=== PATIENT | male | born 1930 | race Caucasian/White ===

== ENCOUNTER 2016-10-29 14:39 | Emergency (ER) | payer MEDICAID, MEDICARE ==
--- NOTE | 2016-10-29 15:05 | EDM.PDOC ---
ED HPI GI/ABDOMINAL - General Chief Complaint: Gastrointestinal Problem Stated Complaint: PULLED OUT G-TUBE Time Seen by Provider: 10/29/16 14:45 Source of Information: Reports: Family History Limitations: Reports: No limitations - History of Present Illness INITIAL COMMENTS - FREE TEXT/NARRATIVE: visited with Dr. Wilson at [facility] ER as we do not have a g-tube replacement. She is willing to accept the patient to insert and return. - Related Data Allergies/ADRs: Allergies Allergy/AdvReac Type Severity Reaction Status Date / Time No Known Allergies Allergy Verified 12/09/15 13:09 Home Meds: Home Meds ARIPiprazole [Abilify] 10 mg PO BID 12/09/15 [History] Acetaminophen [Tylenol] 650 mg PO Q4H PRN 12/09/15 [History] Aspirin 325 mg PO DAILY 12/09/15 [History] Bisacodyl [Dulcolax] 5 mg PO DAILY PRN 12/09/15 [History] Bisacodyl [Dulcolax] 10 mg RECTAL DAILY PRN 12/09/15 [History] Docusate Sodium/Sennosides [Senna Plus] 1 tab PO BID 12/09/15 [History] Donepezil HCl [Aricept] 10 mg PO DAILY 12/09/15 [History] Donepezil [Aricept] 5 mg PO BEDTIME 12/09/15 [History] Magnesium Hydroxide [Milk of Magnesia] 30 ml PO DAILY PRN 12/09/15 [History] QUEtiapine [SEROquel] 25 mg PO BEDTIME PRN 12/09/15 [History] Simvastatin [Zocor] 20 mg PO BEDTIME 12/09/15 [History] carBAMazepine [Tegretol] 200 mg PO BID 12/09/15 [History] Past Medical History Cardiovascular History: Reports: Afib, High cholesterol, Hypertension Gastrointestinal History: Reports: Chronic constipation Genitourinary History: Reports: BPH, Urinary incontinence Psychiatric History: Reports: Alzheimers disease, Dementia, Depression, Psychosis, Other (see below) Other Psychiatric History: Restless, agitation, noncompliance with other medical treatment and regimen ED ROS GENERAL - Review of Systems Review Of Systems: Unable To Obtain ED EXAM, GI/ABD - Physical Exam Exam: Not Obtained Course - Vital Signs Last Recorded V/S: Last Vital Signs Temp 36.9 C 10/29/16 14:40 Pulse 88 10/29/16 14:40 Resp 14 10/29/16 14:40 BP 160/84 H 10/29/16 14:40 Pulse Ox 95 10/29/16 14:40 Departure - Departure Time of Disposition: 15:07 Disposition: DC/Tfer to Other 70 Condition: good Clinical Impression: Encounter for feeding tube placement Forms: ED Department Discharge, Interfacility Transfer EMTALA - Problem List & Annotations (1) Encounter for feeding tube placement SNOMED Code(s): 470441273 Code(s): Z78.9 - OTHER SPECIFIED HEALTH STATUS Status: Acute Priority: Medium - Problem List Review Problem List Initiated/Reviewed/Updated: Yes - Assessment/Plan Assessment:: g-tube removal Plan: transfer out to [facility] by Dr. Wilson
== END 2016-10-29 15:20 | disposition other institution (70) ==
LOC: VM.ED 14:39
CPT/HCPCS: 99284